=== PATIENT | female | born 1950 | race Caucasian/White ===

== ENCOUNTER 2023-08-24 14:59 | Outpatient (RCR) | payer MEDICARE, OTHER, SELFPAY | END 2023-08-24 23:59 | disposition home or self-care (01) | LOC: RPT 14:59 | PROVIDERS: ATTENDING PHYSICIAN Family Medicine | DX: Z47.1 Aftercare following joint replacement surgery (principal); Z96.652 Presence of left artificial knee joint; M25.562 Pain in left knee; M54.51 Vertebrogenic low back pain; R26.89 Other abnormalities of gait and mobility | CPT/HCPCS: 97110; 97140 ==

== ENCOUNTER 2023-08-25 17:11 | Outpatient (RCR) | payer MEDICARE, OTHER, SELFPAY | END 2023-08-25 23:59 | disposition home or self-care (01) | LOC: ROT 17:11 | PROVIDERS: ATTENDING PHYSICIAN Orthopaedic Surgery Hand Surgery; FAMILY PHYSICIAN Family Medicine | DX: S52.134D Nondisplaced fracture of neck of right radius, subsequent encounter for closed fracture with routine healing (principal) | CPT/HCPCS: 97010; 97110; 97166; 97535 ==

== ENCOUNTER 2023-09-22 11:01 | Outpatient (RCR) | payer MEDICARE, OTHER, SELFPAY | END 2023-09-22 23:59 | disposition home or self-care (01) | LOC: ROT 11:01 | PROVIDERS: ATTENDING PHYSICIAN Orthopaedic Surgery Hand Surgery; FAMILY PHYSICIAN Family Medicine | DX: S52.134D Nondisplaced fracture of neck of right radius, subsequent encounter for closed fracture with routine healing (principal); Z73.6 Limitation of activities due to disability | CPT/HCPCS: 97010; 97110; 97530 ==

== ENCOUNTER 2023-09-28 12:10 | Outpatient (RCR) | payer MEDICARE, OTHER, SELFPAY | END 2023-09-28 23:59 | disposition home or self-care (01) | LOC: RPT 12:10 | PROVIDERS: ATTENDING PHYSICIAN Family Medicine | DX: Z47.1 Aftercare following joint replacement surgery (principal); M25.562 Pain in left knee; M54.51 Vertebrogenic low back pain; Z73.6 Limitation of activities due to disability; R26.89 Other abnormalities of gait and mobility; Z96.652 Presence of left artificial knee joint | CPT/HCPCS: 97110; 97140 ==

== ENCOUNTER 2023-10-15 10:57 | Outpatient (RCR) | payer MEDICARE, OTHER, SELFPAY | END 2023-10-19 09:29 | disposition home or self-care (01) | LOC: RPT 10:57 | PROVIDERS: ATTENDING PHYSICIAN Family Medicine | DX: M25.562 Pain in left knee (principal); M54.51 Vertebrogenic low back pain; Z73.6 Limitation of activities due to disability; R26.89 Other abnormalities of gait and mobility; I89.0 Lymphedema, not elsewhere classified; Z96.652 Presence of left artificial knee joint | CPT/HCPCS: 97110; 97140 ==

== ENCOUNTER → 2024-01-26 14:41 | Outpatient (REF) | payer MEDICARE, OTHER, SELFPAY | LOC: HWRAD 14:41 | PROVIDERS: ATTENDING PHYSICIAN Nurse Practitioner Adult Health; FAMILY PHYSICIAN Family Medicine; REFERRING PHYSICIAN Internal Medicine Hematology & Oncology | DX: C50.911 Malignant neoplasm of unspecified site of right female breast (principal) | CPT/HCPCS: 71260; Q9967 ==

== ENCOUNTER → 2024-04-14 15:46 | Outpatient (REF) | payer MEDICARE, OTHER, SELFPAY | LOC: RCS 15:46 | PROVIDERS: ATTENDING PHYSICIAN Internal Medicine Critical Care Medicine; FAMILY PHYSICIAN Family Medicine | DX: I27.20 Pulmonary hypertension, unspecified (principal) | CPT/HCPCS: 93306 ==

== ENCOUNTER → 2024-11-28 06:53 | Outpatient (REF) | payer MEDICARE, OTHER, SELFPAY | LOC: RAD 06:53 | PROVIDERS: ATTENDING PHYSICIAN Family Medicine; FAMILY PHYSICIAN Family Medicine | DX: I73.9 Peripheral vascular disease, unspecified (principal) | CPT/HCPCS: 93922 ==

== ENCOUNTER → 2025-03-30 13:28 | Outpatient (REF) | payer MEDICARE, OTHER, SELFPAY | LOC: REG 13:28 | PROVIDERS: ATTENDING PHYSICIAN Internal Medicine Critical Care Medicine; FAMILY PHYSICIAN Family Medicine | DX: J45.909 Unspecified asthma, uncomplicated (principal) | CPT/HCPCS: 71046 ==

== ENCOUNTER → 2025-05-30 09:13 | Outpatient (REF) | payer MEDICARE, OTHER, SELFPAY ==
[2025-05-30 11:09] LABS: ALT (SGPT) 23 U/L (0-35); AST (SGOT) 22 U/L (14-36); Albumin 4.3 g/dl (3.5-5.0); Alkaline Phosphatase 111 U/L (38-126); Blood Urea Nitrogen 21 mg/dl (7-17); Calcium 9.5 mg/dl (8.4-10.2); Carbon Dioxide 30 mmol/L (22-30); Chloride 104 mmol/L (98-107); Glucose 122 mg/dl (70-99); HDL Cholesterol 57 mg/dl; LDL Cholesterol, Calculated 62 mg/dl; Potassium 4.4 mmol/L (3.5-5.1); Sodium 141 mmol/L (135-145); Total Protein 7.0 g/dl (6.3-8.2); Very Low Density Lipoprotein 39 mg/dl (0-30); eGFR > 60.00
[2025-05-30 12:26] LABS: Glycohemoglobin (HgbA1c) 6.2 % (4.0-5.6)
== END ==
LOC: RAD 09:13
PROVIDERS: ATTENDING PHYSICIAN Family Medicine
DX: S06.0X0D Concussion without loss of consciousness, subsequent encounter (principal); E78.2 Mixed hyperlipidemia; R73.01 Impaired fasting glucose
CPT/HCPCS: 36415; 72050; 80053; 80061; 83036

== ENCOUNTER 2025-07-17 17:45 | Emergency (ER) | payer MEDICARE, OTHER, SELFPAY ==
[2025-07-17 17:52] VITALS: BP 161/97
[2025-07-17 18:23] LABS: Hematocrit 42.6 % (37.0-47.0); Hemoglobin 13.5 g/dL (12.0-16.0); Mean Corp Hgb Conc. 31.7 g/dL (33.0-37.0); Mean Corpuscular Volume 95.1 fL (81.0-99.0); Nucleated Red Blood Cells % 0 %; Platelet Count 267 10^3/uL (130-400); Red Cell Dist. Width 13.2 % (11.5-14.5)
[2025-07-17 18:47] LABS: ALT (SGPT) 34 U/L (0-35); AST (SGOT) 31 U/L (14-36); Albumin 4.5 g/dl (3.5-5.0); Alkaline Phosphatase 115 U/L (38-126); Blood Urea Nitrogen 20 mg/dl (7-17); Calcium 10.0 mg/dl (8.4-10.2); Chloride 102 mmol/L (98-107); Glucose 102 mg/dl (70-99); Potassium 4.1 mmol/L (3.5-5.1); Sodium 140 mmol/L (135-145); Total Protein 7.0 g/dl (6.3-8.2); eGFR > 60.00
[2025-07-17 18:55] LABS: Carbon Dioxide 31 mmol/L (22-30)
[2025-07-17 18:59] LABS: Troponin I 0.018 ng/ml
[2025-07-17 21:59] VITALS: BMI 32.7
[2025-07-17] MEDS: TYLENOL 1000 MG PO (22:02)
[2025-07-17] MEDS: MAALOX 50 PO (23:40)
--- NOTE | 2025-07-17 23:46 | ED.GENMED ---
History of Present Illness
General
Chief Complaint: Back Pain
Source: patient
Exam Limitations: none
Time Seen by Provider: 07/17/25 23:14
Nursing documentation reviewed up to this point in time: agreed with
History of Present Illness
History of Present Illness:
Note:
CHIEF COMPLAINT(S)
Intermittent back pain radiating to the chest.
HISTORY OF PRESENT ILLNESS
The patient is a 75-year-old female with pmh of asthma, GERD, breast cancer, presenting with intermittent back pain that has begun to radiate to the chest. The patient reports that the pain initially started in the chest, then moved to the back, and
currently, she still feels it in both areas. The pain was notably worse today, especially at night, when it became severe. The patient describes the pain as sharp but not burning and reports being unable to compare it to any previous episodes. She
denies any significant cardiac history and has no history of stent placements.
The patient states the pain worsened with exertion and deep breathing, although her vital signs remained normal, with no oxygen desaturation or tachycardia. She notes a history of gastroesophageal reflux disease (GERD) and has been taking
medications for it, which suggests the possibility of the pain being related to reflux, as the esophagus passing behind the heart could cause referred pain. However, todays pain episode felt different from previous heartburn experiences.
The patient completed a long car journey in early May. She denies recent trauma or heavy lifting but noted a fall back in December. Additional symptoms include nausea but no vomiting, and at times, her heart felt like it was racing, although it has
calmed now. She recently felt a sour taste in her mouth, which has been a persistent symptom.
A preliminary electrocardiogram and troponin levels were conducted.
MEDICATIONS
Patient has been previously on medications for gastroesophageal reflux disease but specific names and dosages were not mentioned.
REVIEW OF SYSTEMS
- Cardiovascular: Chest pain, racing heart sensations
- Respiratory: Shortness of breath, especially pronounced with deep breaths
- Gastrointestinal: Sour taste in the mouth, nausea without emesis
- Musculoskeletal: Intermittent back pain radiating to the chest
- Neurological: No focal neurological deficit observed
- General: Previous fall in December
PHYSICAL EXAM
General: Well appearing, alert, in no acute distress
Skin: Warm, dry.
Head: Normocephalic, atraumatic.
Neck: Supple, trachea midline.
Eyes, Ears, Nose, Mouth, and Throat: Oral mucosa moist.
Cardiovascular: Regular rate and rhythm, no murmurs. Normal peripheral perfusion, No edema.
Respiratory: Regular rate and rhythm, no murmurs. Respirations are non-labored.
Gastrointestinal : Abdomen nondistended no tenderness to palpation.
Back: Normal range of motion, Normal alignment.
Musculoskeletal: Normal ROM, normal strength in extremities.
Neurological: Alert and oriented to person, place, time, and situation.
Psychiatric: Cooperative, appropriate mood & affect.
PLAN
1. Repeat troponin levels to monitor for cardiac injury.
2. Order a CT scan of the chest to evaluate for pulmonary embolism and assess the aorta.
3. Administer a GI cocktail, including Mylanta and lidocaine, to manage potential GERD-related pain.
4. Suggest follow-up with a infusion rn for further cardiac evaluation, potentially including an echocardiogram.
DIFFERENTIAL DIAGNOSIS
The Differential Diagnosis includes, in no particular order and is not limited to:
1. Myocardial ischemia
2. Pulmonary embolism
3. Gastroesophageal reflux disease
4. Aortic dissection
5. Costochondritis
6. Peptic ulcer disease
7. Musculoskeletal pain
8. Shingles (Herpes Zoster, especially given recent discomfort and age)
9. Esophageal spasm
10. Panic attack or anxiety disorder
Disposition:
SUMMARY OF ENCOUNTER
The patient is a 75-year-old female with a history of asthma, GERD, sleep apnea, and previous breast cancer, presenting to the emergency department with chest pain and back pain worsened by deep breathing. During the emergency department visit, her
physical examination indicated that she was not in acute distress. Laboratory tests showed no leukocytosis, no anemia, and an initial troponin level of 0.018 ng/mL with an ECG showing no ischemia. A repeat troponin test was undetectable, and the ECG
remained unchanged. A CT scan of the chest revealed no pleural effusion and no signs of pulmonary embolism or aortic dissection. Her symptoms showed some improvement after a GI cocktail but persisted. The symptoms are suspected to be related to
GERD. She was advised to continue taking her omeprazole, and she was given a prescription for carafate (sucralfate). She was stable and deemed safe for discharge with instructions for close follow-up with her primary care physician and cardiology
reevaluation.
DISPOSITION
Discharge.
ASSESSMENT
Suspected GERD-related symptoms.
EMERGENCY TREATMENTS ADMINISTERED
GI cocktail administered.
PLAN
Continue omeprazole and commence sucralfate. Close follow-up with primary care physician and cardiology is advised in the coming weeks.
INDEPENDENT REVIEW OF LABS AND INTERPRETATION OF TESTS
- My independent review of CBC shows no leukocytosis and no anemia.
- My independent review of the troponin test shows an initial level of 0.018 ng/mL and repeat troponin undetectable.
- My independent ECG interpretation is no ischemia in initial and repeat tests.
- My independent interpretation of the CT scan shows no pleural effusion, pulmonary embolism, or aortic dissection.
PATIENT EDUCATION AND COUNSELING
The patient was advised about the suspected GERD-related nature of her symptoms and instructed on the importance of medication adherence and follow-up care.
FOLLOW-UP INSTRUCTIONS
Follow-up with primary care physician and cardiology in the coming weeks.
MEDICATION RECONCILIATION
- Omeprazole (Prilosec) - continue.
- Sucralfate (Carafate) - prescription provided.
MEDICAL DECISION MAKING
- Complexity of Data Reviewed: Chronic conditions affecting care include asthma, GERD, sleep apnea, and previous breast cancer. Differential diagnosis includes myocardial ischemia, pulmonary embolism, GERD, aortic dissection, and others.
- Data:
- Category 1: Labs reviewed include CBC (no leukocytosis, no anemia), troponin (initial 0.018 ng/mL, repeat undetectable), and ECG (no ischemia).
- Category 2: My independent interpretation of ECG and CT scan showing no acute issues.
- Risk: Consideration of Admission/Observation: Escalation of care including admission/observation was considered given the complexity and risk of the patients presenting complaint, exam findings, and/or their underlying comorbidities. However,
ultimately, I feel the patient is safe for outpatient management with close follow-up. Reasoning: Work-up reassuring, does not reveal any acute life/organ-threatening processes, patients symptoms well-controlled upon reevaluation, reexamination is
reassuring, vitals are stable, patient agreeable with discharge, reliable for follow-up.
DIAGNOSIS
- Gastroesophageal Reflux Disease (GERD), ICD-10: K21.9
Chest pain
Past History
Past History
ED Past Medical History: Asthma and Cancer
ED Past Surgical History: Orthopedic and Other (Mastectomy)
Social History
Tobacco: Non-smoker
Alcohol: Occasional
Drug: None
Personal:
Living: with family
Employment: Employed
Family History
Family History: Other (Noncontributory)
Phy Exam
Physical Exam
Physical Exam:
see hpi
Course
Orders/Labs/Results
Orders:
Orders
07/17/25 17:52
EKG [Electrocardiogram (*1)] Urgent
Reason for Study: Chest Pain
EKG- Treatment ONCE
07/17/25 18:07
Complete Blood Count/With Diff Urgent
Comprehensive Metabolic Panel Urgent
Troponin I Urgent
07/17/25 20:47
Chest [CR Chest - 2 Views ] Urgent
Comment:
Reason For Exam: chest pain
07/17/25 22:01
Acetaminophen [Tylenol] 1,000 mg PO NOW STA
07/17/25 23:15
Electrocardiogram (*1) Urgent
Reason for Study: Chest Pain
07/17/25 23:29
CT Chest PE Study Urgent
Comment:
Reason For Exam: pleuritic chest pain, back pain, chemo hx
Mag Hydrox/Al Hydrox/Simeth [Maalox] 30 ml Phenobarb/Hyoscy/Atropine/Scop [] 10 ml Viscous Lidocaine 2% [Xylocaine Viscous Cup] 10 ml PO NOW
07/17/25 23:39
Mag Hydrox/Al Hydrox/Simeth [Maalox] 30 ml .ROUTE .STK-MED ONE
Phenobarb/Hyoscy/Atropine/Scop [] 10 ml .ROUTE .STK-MED ONE
Viscous Lidocaine 2% [Xylocaine Viscous Cup] 15 ml .ROUTE .STK-MED ONE
07/17/25 23:43
Troponin I Urgent
Abnormal Lab Results
07/17/25
18:07
MCHC 31.7 L g/dL
(33.0-37.0)
Monocytes % 10.3 H %
(1.7-9.3)
Carbon Dioxide 31 H mmol/L
(22-30)
BUN 20 H mg/dl
(7-17)
Glucose 102 H mg/dl
(70-99)
07/17/25 18:07
07/17/25 18:07
Vital Signs
Initial and Last Documented VS:
Initial Vital Signs
Temp Pulse Resp BP Pulse Ox
98.2 F 75 16 161/97 95
07/17/25 17:52 07/17/25 17:52 07/17/25 17:52 07/17/25 17:52 07/17/25 17:52
Last Documented Vital Signs
Temp Pulse Resp BP Pulse Ox
98.2 F 67 17 161/97 96
07/17/25 17:52 07/18/25 00:12 07/18/25 00:12 07/17/25 17:52 07/18/25 00:12
*Pulse Oximetry
SaO2: 95
Oxygen Mode of Delivery: Room air
Patient hypoxic: no
*Critical Care Note
Total Time (30-74mins, 75-104mins- exclusive of procedures): Not Applicable
ED Attending Note
-
Portions of this chart may have been created with voice recognition software.� Occasional wrong word or��sound alike� substitutions may have occurred due to the inherent limitations of voice recognition software.
Discharge Plan
Departure
Patient Disposition: Home (Routine Discharge)
Date of Disposition: 07/18/25
Time of Disposition: 00:42
Patient with high blood pressure during this ER visit?: Yes
Condition: Good
Discharge Problem:
Chest pain, GERD (gastroesophageal reflux disease)
Instructions: Chest Pain PCP Follow Up, BLOOD PRESSURE
Prescriptions:
New
sucralfate 100 mg/mL suspension
1 g PO TID 5 Days Qty: 150 0RF
No Action
anastrozole 1 MG tablet
1 mg PO QPM
cetirizine 10 MG tablet
10 mg PO HS
prednisone 10 mg Tablet
10 mg PO . DIRECTED
amoxicillin-pot clavulanate 125-31.25 mg Tablet,Chewable
1 tab PO BID
Florastor
2 cap PO DAILY
oxycodone 5 mg tablet
5 - 10 mg PO Q4HPRN PRN (Reason: moderate to severe pain) Qty: 20 0RF
fluticasone propion-salmeterol [Advair Diskus] 250-50 mcg/dose Blister With Device
1 inh INHALATION R BID
omeprazole 40 mg capsule,delayed release(DR/EC)
40 mg PO QPM
calcium carbonate [Calcium 500] 500 mg calcium (1,250 mg) Tablet
500 mg PO DAILY
triamcinolone acetonide [Nasacort] 55 mcg Aerosol,[place]
1 spray INTRANASAL DAILY
Rx Instructions:
administer into each nostril
gabapentin 100 mg Capsule
300 mg PO HS
magnesium 200 mg Tablet
200 mg PO DAILY
Sudafed PE Sinus Headache 5-325 mg Tablet
1 tab PO DAILYPRN PRN (Reason: sinus)
Referrals:
Geovanny Escalante DO [Active, Cardiology] - Call in 1-3 days for appt
Tenthoff,Cassidy Wynn MD [Family Provider, [facility]]
Activity Restrictions/Additional Instructions:
Carafate has been sent to your pharmacy. You can use 1 dose up to 3 times a day as needed for indigestion.
Please continue to take Prilosec. He also supplement and try a dose of for a large meal. Please continue to monitor your symptoms. As discussed, your CT of the chest was unremarkable and your troponins were normal. You can also continue to take
Tylenol.
PLEASE RETURN TO ER SHOULD YOU DEVELOP INTRACTABLE NAUSEA OR VOMITING, ACUTE WORSENING OR SYMPTOMS, TROUBLE BREATHING, LIGHTHEADEDNESS, DIZZINESS, OR ANY OTHER SIGNS OR SYMPTOMS WORRISOME TO YOU. PLEASE FOLLOW-UP WITH YOUR PRIMARY CARE PROVIDER.
Please call the attached number to schedule follow-up appointment with cardiology.
Interventions
Interventions:
*Risk Screen - Suicide Last Done: 07/17/25 17:53
*General Assessment Last Done: 07/17/25 21:58
*Neglect/Abuse Screening Last Done: 07/17/25 17:53
*ED- Fall Risk Assessment Last Done: 07/17/25 21:58
*ED COVID-19 Vaccine History Last Done: 07/17/25 21:58
*ED Influenza Vaccine History Last Done: 07/17/25 21:58
*Nursing Disposition Last Done: 07/18/25 00:48
ED-Musculoskeletal Assessment Last Done: 07/17/25 21:57
Discharge Date and Time
Discharge Date/Time: 07/18/25 00:48
Print Language: AZERI
[2025-07-18 00:21] LABS: Troponin I < 0.012 ng/ml
== END 2025-07-18 00:48 | disposition home or self-care (01) ==
LOC: EMR 17:45
PROVIDERS: Physician Assistant; Student in an Organized Health Care Education/Training Program; EMERGENCY PHYSICIAN Student in an Organized Health Care Education/Training Program; FAMILY PHYSICIAN Family Medicine
DX: R07.89 Other chest pain (principal); K21.9 Gastro-esophageal reflux disease without esophagitis; J45.909 Unspecified asthma, uncomplicated; Z85.3 Personal history of malignant neoplasm of breast; Z90.10 Acquired absence of unspecified breast and nipple; Z92.21 Personal history of antineoplastic chemotherapy
CPT/HCPCS: 99285; 71046; 71275; 80053; 84484; 85025; 93005; Q9967